=== PATIENT | female | born 1985 | race Hispanic/Latino ===

== ENCOUNTER 2016-10-28 03:12 | Emergency (ER) | payer BC, OTHER ==
[~2016-10-28] VITALS: Ht 175.3 cm; Wt 90.4 kg
[2016-10-28] MEDS ORDERED: KETOROLAC 60 MG/2 ML (TORADOL) VIAL IM ONE ×2 (03:55→04:59)
[2016-10-28] MEDS ORDERED: ED- CYCLOBENZAPRINE 10 MG (FLEXERIL) 3 TABLETS/BTL PO ONE (04:50)
--- NOTE | 2016-10-28 05:04 | NUR ---
Pulled Tordal for this pt but Mary had already pulled it. Unable to waste medication. ANTONI Echavarria witnessed that it was not given to the pt and wasted in the proper receptacle.
[2016-10-28 05:08] VITALS: BP 132/79
== END 2016-10-28 05:09 | disposition home or self-care (01) ==
LOC: ED 03:17
DX: S39.012A Strain of muscle, fascia and tendon of lower back, initial encounter (principal); S29.012A Strain of muscle and tendon of back wall of thorax, initial encounter; X58.XXXA Exposure to other specified factors, initial encounter; R07.89 Other chest pain; M54.5 Low back pain; M54.89 Other dorsalgia
CPT/HCPCS: 96372; 99282; J1885; 99283

== ENCOUNTER → 2016-10-28 | Outpatient (CLI) | payer BC | LOC: RAD 12:20 | PROVIDERS: ATTEND Chiropractor | DX: M54.6 Pain in thoracic spine (principal) | CPT/HCPCS: 72072; 72100 ==

== ENCOUNTER → 2016-11-01 | Outpatient (CLI) | payer BC | LOC: RAD 10:22 | PROVIDERS: ATTEND Chiropractor | DX: R10.811 Right upper quadrant abdominal tenderness (principal); K80.20 Calculus of gallbladder without cholecystitis without obstruction | CPT/HCPCS: 74150 ==